=== PATIENT | female | born 1965 | race Two or more races ===

== ENCOUNTER 2020-01-23 13:43 | Inpatient (IN) | payer BC, OTHER ==
[~2020-01-23] VITALS: Ht 154.9 cm; Wt 68.0 kg
[2020-01-23] MEDS ORDERED: DOXYCYCLINE 100 MG TAB/CAP PO ONE (17:15)
[2020-01-23] MEDS ORDERED: SODIUM CHLORIDE 0.9% 1,000 ML IV ONE (17:15)
[2020-01-23] MEDS ORDERED: methylPREDNISolone SOD SUCC 125 MG/2 ML VL IM ONE (17:15)
[2020-01-23] MEDS ORDERED: cefTRIAXone SOD 1,000 MG VL IM ONE (17:15)
[2020-01-23] MEDS ORDERED: methylPREDNISolone SOD SUCC 125 MG/2 ML VL IV ONE (18:15)
[2020-01-23] MEDS ORDERED: cefTRIAXone 1GM/50ML D5W 50 ML IV ONE (18:15)
[2020-01-23 19:00] LABS: Basophils # (auto) 0 10 ^3/uL (0-0.2); Basophils % (auto) 0.1 % (0.0-2.0); Eosinophils # (auto) 0 10 ^3/uL (0-0.8); Hematocrit 37.1 % (36.0-46.0); Hemoglobin 12.8 g/dL (12.2-16.2); Lymphocytes % (auto) 11.5 % (10.0-50.0); Mean Corpuscular Hgb Conc. 34.6 g/dL (32.0-36.0); Mean Corpuscular Volume 89.6 fL (80.0-100.0); Monocytes # (auto) 0.6 10 ^3/uL (0-1.3); Neutrophils % (auto) 81.4 % (37.0-80.0); Platelet Count (auto) 248 10^3/uL (140-450); Red Blood Cells 4.14 10^6/uL (4.0-5.20); Red Cell Distribution Width 12.6 % (11.8-14.3); White Blood Cell 8.6 10^3/uL (4.4-10.8)
[2020-01-23 19:14] LABS: INR 1.06 (0.9-1.15); Partial Thromboplastin Time 25.5 sec (23.0-31.2)
[2020-01-23 19:21] LABS: Anion Gap 6 (5-15); Blood Urea Nitrogen 9 mg/dL (7-18); Calcium 8.3 mg/dL (8.5-10.1); Carbon Dioxide 25 mmol/L (21-32); Chloride 107 mmol/L (98-107); Glucose 145 mg/dL (74-106); Potassium 3.5 mmol/L (3.5-5.1); Sodium 138 mmol/L (136-145)
[2020-01-23 19:27] LABS: Alanine Aminotransferase 20 U/L (13-56); Alkaline Phosphatase 45 U/L (45-117); Aspartate Aminotransferase 26 U/L (15-37); BUN/Creatinine Ratio 11.7; Bilirubin, Total 0.6 mg/dL (0.2-1.0); GFR African American 100 mL/min; GFR Non-African American 82 mL/min; Total Protein 7.1 g/dL (6.4-8.2)
[2020-01-23] MEDS ORDERED: ACETAMINOPHEN 325 MG TAB PO ONE (21:00)
[2020-01-24] MEDS ORDERED: ACETAMINOPHEN 325 MG TAB PO PRN (04:45)
[2020-01-24] MEDS ORDERED: DOCUSATE SOD 100 MG CAP PO PRN (04:45)
[2020-01-24] MEDS ORDERED: MORPHINE SULF INJ 2 MG/ML SYRINGE 1ML IV PRN (04:45)
[2020-01-24] MEDS ORDERED: ONDANSETRON HCL 4 MG/2 ML VIAL IV PRN (04:45)
[2020-01-24] MEDS ORDERED: NITROGLYCERIN 0.4 MG SL TAB SL PRN (04:45)
[2020-01-24 05:25] LABS: Basophils # (auto) 0 10 ^3/uL (0-0.2); Basophils % (auto) 0.1 % (0.0-2.0); Eosinophils # (auto) 0 10 ^3/uL (0-0.8); Hematocrit 36.6 % (36.0-46.0); Hemoglobin 12.7 g/dL (12.2-16.2); Lymphocytes # (auto) 0.8 10 ^3/uL (0.4-5.4); Lymphocytes % (auto) 8.8 % (10.0-50.0); Mean Corpuscular Hgb Conc. 34.6 g/dL (32.0-36.0); Mean Corpuscular Volume 89.6 fL (80.0-100.0); Monocytes # (auto) 0.2 10 ^3/uL (0-1.3); Monocytes % (auto) 2.6 % (0.0-12.0); Neutrophils # (auto) 7.6 10 ^3/uL (1.6-8.6); Neutrophils % (auto) 88.5 % (37.0-80.0); Platelet Count (auto) 246 10^3/uL (140-450); Red Blood Cells 4.09 10^6/uL (4.0-5.20); Red Cell Distribution Width 12.7 % (11.8-14.3); White Blood Cell 8.6 10^3/uL (4.4-10.8)
[2020-01-24 05:43] LABS: Albumin 2.9 g/dL (3.4-5.0); Calcium 8.6 mg/dL (8.5-10.1); Potassium 3.4 mmol/L (3.5-5.1)
[2020-01-24 05:46] LABS: BUN/Creatinine Ratio 15.9; Bilirubin, Total 0.4 mg/dL (0.2-1.0)
[2020-01-24] MEDS: SODIUM CHLOR 0.9% PF (SALINE LOCK) 10ML VIAL/SYR IV SCH ×3 (05:47→21:10)
[2020-01-24] MEDS: ENOXAPARIN SOD 40 MG/0.4 ML SYRINGE SC SCH (10:00)
[2020-01-24] MEDS: MULTIPLE VITAMIN TAB PO SCH (10:00)
[2020-01-24] MEDS: ASCORBIC ACID 500 MG TAB PO SCH ×2 (10:00→21:10)
[2020-01-24] MEDS: PANTOPRAZOLE 40 MG/10 ML VIAL INJ IV SCH (10:00)
[2020-01-24] MEDS: ZINC SULFATE 220mg CAP or TAB PO SCH (10:00)
[2020-01-24] MEDS: AZITHROMYCIN 500MG/ 250ML 250 ML IV SCH (12:34)
[2020-01-24] MEDS: DexAMETHasone SOD PHOS 10MG/1ML VIAL INJ IV SCH (12:34)
[2020-01-24] MEDS: HYDROcodone-ACET 5/325MG TAB PO PRN (15:58)
[2020-01-24] MEDS ORDERED: ALBUTEROL SULF 2.5 MG/0.5ML(0.5%) NEB SOLN NEB PRN (17:45)
[2020-01-24] MEDS: CHOLECALCIFEROL (VITD3) 2,000 UNIT CAP PO SCH (18:10)
[2020-01-24] MEDS: cefTRIAXone 1GM/50ML D5W 50 ML IV SCH (18:10)
[2020-01-24 20:52] LABS: Urine Bacteria NONE SEEN /hpf (None Seen); Urine Blood Negative /uL (Negative); Urine Specific Gravity 1.013 (1.001-1.035); Urine WBC <1 /hpf (0 - 5)
[2020-01-25] MEDS: SODIUM CHLOR 0.9% PF (SALINE LOCK) 10ML VIAL/SYR IV SCH ×3 (05:58→21:34)
[2020-01-25] MEDS: HYDROcodone-ACET 5/325MG TAB PO PRN (07:43)
[2020-01-25 08:03] LABS: Basophils # (auto) 0 10 ^3/uL (0-0.2); Basophils % (auto) 0.1 % (0.0-2.0); Eosinophils # (auto) 0 10 ^3/uL (0-0.8); Hematocrit 39.2 % (36.0-46.0); Hemoglobin 13.4 g/dL (12.2-16.2); Lymphocytes # (auto) 1.3 10 ^3/uL (0.4-5.4); Lymphocytes % (auto) 12.8 % (10.0-50.0); Mean Corpuscular Hemoglobin 31.1 pg (28.0-32.0); Mean Corpuscular Hgb Conc. 34.2 g/dL (32.0-36.0); Mean Corpuscular Volume 90.9 fL (80.0-100.0); Monocytes # (auto) 0.7 10 ^3/uL (0-1.3); Monocytes % (auto) 6.7 % (0.0-12.0); Neutrophils % (auto) 80.4 % (37.0-80.0); Platelet Count (auto) 296 10^3/uL (140-450); Red Blood Cells 4.31 10^6/uL (4.0-5.20); Red Cell Distribution Width 13.1 % (11.8-14.3); White Blood Cell 9.9 10^3/uL (4.4-10.8)
[2020-01-25 08:21] LABS: Albumin 2.8 g/dL (3.4-5.0); Calcium 8.8 mg/dL (8.5-10.1); Potassium 3.3 mmol/L (3.5-5.1)
[2020-01-25 08:25] LABS: BUN/Creatinine Ratio 16.9; Bilirubin, Total 0.5 mg/dL (0.2-1.0); Total Protein 6.8 g/dL (6.4-8.2)
[2020-01-25] MEDS: cefTRIAXone 1GM/50ML D5W 50 ML IV SCH (09:29)
[2020-01-25] MEDS: ENOXAPARIN SOD 40 MG/0.4 ML SYRINGE SC SCH (10:00)
[2020-01-25] MEDS: MULTIPLE VITAMIN TAB PO SCH (10:00)
[2020-01-25] MEDS: ASCORBIC ACID 500 MG TAB PO SCH ×2 (10:00→21:34)
[2020-01-25] MEDS: ZINC SULFATE 220mg CAP or TAB PO SCH (10:00)
[2020-01-25] MEDS: PANTOPRAZOLE 40 MG/10 ML VIAL INJ IV SCH (10:00)
[2020-01-25] MEDS: DexAMETHasone SOD PHOS 10MG/1ML VIAL INJ IV SCH (10:00)
[2020-01-25] MEDS: CHOLECALCIFEROL (VITD3) 2,000 UNIT CAP PO SCH (10:00)
[2020-01-25] MEDS: AZITHROMYCIN 500MG/ 250ML 250 ML IV SCH (10:00)
[2020-01-25] MEDS ORDERED: REMDESIVIR PER PHARMACY 0 ML IV SCH (19:30)
[2020-01-25] MEDS ORDERED: REMDESIVIR 200 MG in NS 210ml LOADING DOSE ADULT IV ONE (21:00)
--- NOTE | 2020-01-26 02:30 | NUR ---
Telemetry admit from ER MADHUCAMRON admitted to Telemetry unit after SBAR received. Patient oriented to JOAO AGUILAR RN primary RN, unit, room, bed, and unit policies regarding patient care and visiting hours. Patient now on continuous telemetry monitoring, tele box # [id number] and telemetry reading on arrival to unit is Sinus Aj at 51BPM. Patient placed on bedside oxygen, weighed by bedscale and encouraged to call if they need something. All questions and concerns addressed, patient verbalized understanding.
[2020-01-26] MEDS: HYDROcodone-ACET 5/325MG TAB PO PRN ×2 (02:49→22:00)
[2020-01-26 03:46] VITALS: BP 119/66
[2020-01-26 04:00] VITALS: BP 119/66
[2020-01-26] MEDS ORDERED: LEVO88TA4 PO (04:32)
[2020-01-26] MEDS: SODIUM CHLOR 0.9% PF (SALINE LOCK) 10ML VIAL/SYR IV SCH ×2 (05:32→17:06)
--- NOTE | 2020-01-26 06:47 | NUR ---
Patient is resting in bed with eyes closed, resting, no distress noted and patient denies pain.
[2020-01-26 08:00] VITALS: BP 104/63
[2020-01-26] MEDS: cefTRIAXone 1GM/50ML D5W 50 ML IV SCH (09:00)
[2020-01-26 09:47] LABS: Basophils # (auto) 0 10 ^3/uL (0-0.2); Basophils % (auto) 0.1 % (0.0-2.0); Eosinophils # (auto) 0 10 ^3/uL (0-0.8); Eosinophils % (auto) 0.2 % (0.0-7.0); Hematocrit 37.9 % (36.0-46.0); Hemoglobin 12.8 g/dL (12.2-16.2); Lymphocytes # (auto) 1.5 10 ^3/uL (0.4-5.4); Lymphocytes % (auto) 23.8 % (10.0-50.0); Mean Corpuscular Hemoglobin 30.4 pg (28.0-32.0); Mean Corpuscular Hgb Conc. 33.8 g/dL (32.0-36.0); Monocytes # (auto) 0.5 10 ^3/uL (0-1.3); Neutrophils # (auto) 4.3 10 ^3/uL (1.6-8.6); Neutrophils % (auto) 67.9 % (37.0-80.0); Nucleated Red Blood Cells % 0.1 %; Platelet Count (auto) 329 10^3/uL (140-450); Red Blood Cells 4.22 10^6/uL (4.0-5.20); Red Cell Distribution Width 12.8 % (11.8-14.3); White Blood Cell 6.3 10^3/uL (4.4-10.8)
[2020-01-26 10:00] LABS: Potassium 3.5 mmol/L (3.5-5.1)
[2020-01-26] MEDS: PANTOPRAZOLE 40 MG/10 ML VIAL INJ IV SCH (10:00)
[2020-01-26 10:03] LABS: BUN/Creatinine Ratio 22.2; Calcium 8.7 mg/dL (8.5-10.1)
[2020-01-26] MEDS: MULTIPLE VITAMIN TAB PO SCH (10:40)
[2020-01-26] MEDS: ZINC SULFATE 220mg CAP or TAB PO SCH (10:41)
[2020-01-26] MEDS: DexAMETHasone SOD PHOS 10MG/1ML VIAL INJ IV SCH (10:41)
[2020-01-26] MEDS: CHOLECALCIFEROL (VITD3) 2,000 UNIT CAP PO SCH (10:41)
[2020-01-26] MEDS: ENOXAPARIN SOD 40 MG/0.4 ML SYRINGE SC SCH (10:41)
[2020-01-26] MEDS: ASCORBIC ACID 500 MG TAB PO SCH ×2 (10:42→21:59)
[2020-01-26] MEDS: AZITHROMYCIN 500MG/ 250ML 250 ML IV SCH (12:10)
[2020-01-26 12:11] VITALS: BP 116/68
[2020-01-26 16:00] VITALS: BP 97/61
[2020-01-26] MEDS ORDERED: FUROSEMIDE 20 MG TAB PO ONE (16:45)
[2020-01-26] MEDS ORDERED: POTASSIUM CHL 20 Meq TABLET PO ONE (16:45)
[2020-01-26] MEDS: REMDESIVIR 100 MG in SODIUM CHL 0.9% 250 ML IV SCH (17:05)
--- NOTE | 2020-01-26 17:08 | NUR ---
I received a call from Dr. Willis regarding home health and home oxygen order for this patient. I made him aware that due to the late hour, it most likely would have to be completed tomorrow. I faxed home health order to [facility]. I faxed home oxygen order to [facility]. I faxed home health and home oxygen order to [facility].
--- NOTE | 2020-01-26 19:25 | NUR ---
Opening Shift Note Received report from erendira Coburn RN. Assumed care of patient, awake and alert. No S/S of distress/SOB or pain. On 3LNC saturating at 90%. Instructed on POC and to call for assist PRN, will continue to monitor for changes Q1hr and PRN. Bed placed in lowest position and call light within reach.
--- NOTE | 2020-01-26 19:42 | NUR ---
Patient was able to ambulated to the bathroom with slow pace. Remdesivir first dose given at 1710, BP after 15 minutes: 96/59, HR 63, o2 94% on 3L NC, temp 98.1F. finished remdesivir at 1820, BP 106/61, HR 78, RR 18, 90% on 3L o2. no adverse reaction. Received a call in the late afternoon from MD to call pulmologist Dr. Bueno for clearance for discharge, but it was too late to call and not able to reach Dr. Bueno. report given to [employer] food shift lead RN.
--- NOTE | 2020-01-26 19:56 | NUR ---
Given hot lorne tea per patient request.
[2020-01-26 22:00] VITALS: BP 106/61
[2020-01-27] MEDS: SODIUM CHLOR 0.9% PF (SALINE LOCK) 10ML VIAL/SYR IV SCH ×3 (02:23→14:28)
[2020-01-27 05:00] VITALS: BP 102/58
--- NOTE | 2020-01-27 05:18 | NUR ---
Influenza A&B swab sent to lab.
[2020-01-27 06:06] LABS: Mean Corpuscular Hemoglobin 31.3 pg (28.0-32.0); Mean Corpuscular Hgb Conc. 35.2 g/dL (32.0-36.0); Mean Corpuscular Volume 89.2 fL (80.0-100.0); Platelet Count (auto) 333 10^3/uL (140-450); Red Blood Cells 4.15 10^6/uL (4.0-5.20); Red Cell Distribution Width 12.7 % (11.8-14.3); White Blood Cell 5.5 10^3/uL (4.4-10.8)
[2020-01-27 06:22] LABS: Basophils % (manual) 0 (0.0-2.0); Blast Cells 0; Promyelocytes % 0
[2020-01-27 06:29] LABS: BUN/Creatinine Ratio 22.4; Calcium 8.2 mg/dL (8.5-10.1); Potassium 3.9 mmol/L (3.5-5.1)
--- NOTE | 2020-01-27 07:00 | NUR ---
Patient is positive for Influenza A and B. Dr Alejandra Willis contacted and left a message.
[2020-01-27 07:05] LABS: Band Neutrophils % (manual) 1; Lymphocytes % (manual) 30 (10.0-50.0); Metamyelocytes % 1; Monocytes % (manual) 8 (0-12); Myelocytes % 1
--- NOTE | 2020-01-27 07:20 | NUR ---
OPENING NOTE ASSUMED CARE OF PT. ALERT AND ORIENTED. NO S/S OF SOB/DISTRESS NOTED. BED SET TO LOWEST POSITION/LOCKED, BEDSIDE RAILS UP X2, CALL LIGHT WITHIN REACH. INSTRUCTED PT TO CALL FOR ASSISTANCE. UPDATED PT ON POC. PT VERBALIZED UNDERSTANDING. WILL CONTINUE TO MONITOR Q1HR AND PRN.
--- NOTE | 2020-01-27 07:50 | NUR ---
OPENING NOTE ASSUMED CARE OF PT. ALERT AND ORIENTED. NO S/S OF SOB/DISTRESS NOTED. BED SET TO LOWEST POSITION/LOCKED, BEDSIDE RAILS UP X2, CALL LIGHT WITHIN REACH. INSTRUCTED PT TO CALL FOR ASSISTANCE. UPDATED PT ON POC. PT VERBALIZED UNDERSTANDING. WILL CONTINUE TO MONITOR Q1HR AND PRN. Addendum: 01/27/20 at 1552 by Alexus England RN WRONG PATIENT
[2020-01-27 08:13] VITALS: BP 90/56
[2020-01-27] MEDS: cefTRIAXone 1GM/50ML D5W 50 ML IV SCH (10:25)
[2020-01-27] MEDS: PANTOPRAZOLE 40 MG/10 ML VIAL INJ IV SCH (10:26)
[2020-01-27] MEDS: DexAMETHasone SOD PHOS 10MG/1ML VIAL INJ IV SCH (10:26)
[2020-01-27] MEDS: AZITHROMYCIN 500MG/ 250ML 250 ML IV SCH (10:26)
[2020-01-27] MEDS: ASCORBIC ACID 500 MG TAB PO SCH ×2 (10:27→21:31)
[2020-01-27] MEDS: MULTIPLE VITAMIN TAB PO SCH (10:27)
[2020-01-27] MEDS: CHOLECALCIFEROL (VITD3) 2,000 UNIT CAP PO SCH (10:27)
[2020-01-27] MEDS: ZINC SULFATE 220mg CAP or TAB PO SCH (10:27)
[2020-01-27] MEDS: ENOXAPARIN SOD 40 MG/0.4 ML SYRINGE SC SCH (10:28)
--- NOTE | 2020-01-27 11:33 | NUR ---
HOME O2 PATIENTS HOME O2 DELIVERED TO DAY 01/27/2020 AND IS AT BEDSIDE.
--- NOTE | 2020-01-27 11:45 | NUR ---
Nutrition Assessment Note please see attached link for complete assessment Est energy needs BW 69 [id number] kcal (23-25 kcal/kg BW) Est protein needs: 69-75 g (1-1.1g/kg BW) Will monitor and reassess prn. Addendum: 01/27/20 at [address] Amended: Links added.
[2020-01-27 12:16] LABS: Eosinophils % (manual) 0 (0-7)
[2020-01-27 12:17] LABS: Reactive Lymphocytes 0
[2020-01-27 12:30] VITALS: BP 102/61
[2020-01-27] MEDS ORDERED: ALBUTEROL SULF 2.5 MG/0.5ML(0.5%) NEB SOLN NEB SCH (14:45)
[2020-01-27] MEDS ORDERED: OSELTAMIVIR 75 MG CAP PO SCH (14:45)
[2020-01-27] MEDS: REMDESIVIR 100 MG in SODIUM CHL 0.9% 250 ML IV SCH (15:00)
--- NOTE | 2020-01-27 15:00 | NUR ---
REMDESIVIR MEDICATION MEDICATION HELD, PATIENT BP: 87/57. WILL PAGE . WILL CONTINUE TO MONITOR.
--- NOTE | 2020-01-27 15:16 | NUR ---
PAGED Mariam FLANAGAN. RE: BLOOD PRESSURE 87/57 [facility] AND [facility] ADMINISTRATION. AWAITING CALL BACK.
--- NOTE | 2020-01-27 15:30 | NUR ---
REASSESSED BP PATIENT BP: 90/59. WILL CONTINUE TO MONITOR.
[2020-01-27] MEDS: LEVOTHYROXINE SODIUM 88 MCG TAB PO SCH (15:58)
[2020-01-27] MEDS: OSELTAMIVIR 75 MG CAP PO SCH (16:06)
--- NOTE | 2020-01-27 16:36 | NUR ---
REASSESSED BP PATIENT BP 99/67 [facility]. WILL CONTINUE TO MONITOR.
[2020-01-27 17:00] VITALS: BP 115/68
--- NOTE | 2020-01-27 19:30 | NUR ---
Opening Shift Note Received report from day RN. Assumed care of patient, awake and alert. No S/S of distress/SOB or pain. On 4LNC saturating at 95%. Instructed on POC and to call for assist PRN, will continue to monitor for changes Q1hr and PRN. Bed placed in lowest position and call light within reach.
--- NOTE | 2020-01-27 21:20 | NUR ---
Respiratory note: PT CURRENTLY ON NC4L. PT AWAKE AND ALERT. NO RESP DISTRESS NOTED. PRN TX NOT INDICATED. SPO2 94%, HR 101, RR 20. BS CLEAR/DIMINISHED. PT AWARE TO CALL FOR TX IF SOB.
[2020-01-27 22:00] VITALS: BP 95/59
[2020-01-27] MEDS ORDERED: ALBUTEROL SULF HFA 90MCG INH 200DOSE IN SCH (22:00)
[2020-01-27] MEDS ORDERED: ALBUTEROL SULF HFA 90MCG INH 200DOSE IN PRN (22:00)
[2020-01-28 05:00] VITALS: BP 97/58
[2020-01-28 05:54] LABS: Hematocrit 37.2 % (36.0-46.0); Mean Corpuscular Hemoglobin 31.2 pg (28.0-32.0); Mean Corpuscular Hgb Conc. 34.9 g/dL (32.0-36.0); Mean Corpuscular Volume 89.2 fL (80.0-100.0); Platelet Count (auto) 383 10^3/uL (140-450); Red Blood Cells 4.17 10^6/uL (4.0-5.20); Red Cell Distribution Width 12.6 % (11.8-14.3); White Blood Cell 6.3 10^3/uL (4.4-10.8)
[2020-01-28 06:19] LABS: Potassium 3.6 mmol/L (3.5-5.1)
[2020-01-28] MEDS: SODIUM CHLOR 0.9% PF (SALINE LOCK) 10ML VIAL/SYR IV SCH ×3 (06:32→17:58)
[2020-01-28 06:44] LABS: Albumin 2.6 g/dL (3.4-5.0); Bilirubin, Total 0.4 mg/dL (0.2-1.0); Calcium 8.5 mg/dL (8.5-10.1); Total Protein 6.3 g/dL (6.4-8.2)
--- NOTE | 2020-01-28 07:00 | NUR ---
Patient is resting in bed alert and awake. No distress noted, saturating at 96% on 4LNC. Patient denies pain
[2020-01-28 07:06] LABS: Basophils % (manual) 0 (0.0-2.0); Blast Cells 0; Eosinophils % (manual) 0 (0-7); Promyelocytes % 0; Reactive Lymphocytes 0
[2020-01-28] MEDS: LEVOTHYROXINE SODIUM 88 MCG TAB PO SCH (07:12)
--- NOTE | 2020-01-28 07:18 | NUR ---
Respiratory note: PT SEEN AT THIS , AWAKE AND ALERT NO RESP DISTRESS NOTED. HR 68, RR 18, SPO2 95% ON 4L NC.
[2020-01-28 07:30] LABS: INR 1.11 (0.9-1.15); Partial Thromboplastin Time 24.5 sec (23.0-31.2)
[2020-01-28 08:00] VITALS: BP 99/61
--- NOTE | 2020-01-28 08:00 | NUR ---
Opening Shift Note Assumed care of patient, pt is awake and A&OX4. No S/S of distress/SOB or pain. Instructed on POC and to call for assist PRN, call light within reach, bed is locked, in lowest position with side rails upX2. Will continue to monitor for changes Q1hr and PRN.
--- NOTE | 2020-01-28 08:27 | NUR ---
Discharge Discharge instructions given as ordered. Encourage to follow up with PMD as instructed. All questions and concerns addressed. Patient verbalized understanding. Medication reconciliation form completed and copy given to patient. IV removed with catheter intact, pressure dressing applied. Telemetry unit returned to ICU. Pt was discharged with her portable O2X2. Instructions on O2 use and incentive spirometry given, pt verbalized understanding. Instructions on home isolation given and pt verbalized understanding. Patient taken to vehicle via wheelchair with all personal belongings, accompanied by staff. No distress noted at time of departure.
[2020-01-28 08:43] LABS: Band Neutrophils % (manual) 2; Lymphocytes % (manual) 21 (10.0-50.0); Metamyelocytes % 2; Monocytes % (manual) 12 (0-12); Myelocytes % 3
[2020-01-28 09:11] VITALS: BP 99/61
[2020-01-28] MEDS: ENOXAPARIN SOD 40 MG/0.4 ML SYRINGE SC SCH (09:12)
[2020-01-28] MEDS: CHOLECALCIFEROL (VITD3) 2,000 UNIT CAP PO SCH (09:13)
[2020-01-28] MEDS: DexAMETHasone SOD PHOS 10MG/1ML VIAL INJ IV SCH (09:13)
[2020-01-28] MEDS: OSELTAMIVIR 75 MG CAP PO SCH (09:13)
[2020-01-28] MEDS: cefTRIAXone 1GM/50ML D5W 50 ML IV SCH (09:14)
[2020-01-28] MEDS: ZINC SULFATE 220mg CAP or TAB PO SCH (09:14)
[2020-01-28] MEDS: ASCORBIC ACID 500 MG TAB PO SCH (09:14)
[2020-01-28] MEDS: MULTIPLE VITAMIN TAB PO SCH (09:14)
[2020-01-28] MEDS: AZITHROMYCIN 500MG/ 250ML 250 ML IV SCH (09:16)
[2020-01-28] MEDS ORDERED: PANTOPRAZOLE 40 MG TAB PO SCH (10:00)
[2020-01-28] MEDS ORDERED: SODIUM CHLORIDE 0.9% 1,000 ML IV SCH (11:00)
--- NOTE | 2020-01-28 12:05 | NUR ---
MD Gannon at Bedside Dr. Gannon at bedside and discussed plan of care with the patient.
[2020-01-28 12:39] VITALS: BP 89/45
--- NOTE | 2020-01-28 13:25 | NUR ---
Spoke to MD. Willis Spoke to Dr. Willis regarding the pt's decreased BP and obtained a new order. Will follow the order and continue to monitor the pt Q1H.
[2020-01-28] MEDS ORDERED: SODIUM CHLORIDE 0.9% 1,000 ML IV ONE (13:30)
[2020-01-28] MEDS: REMDESIVIR 100 MG in SODIUM CHL 0.9% 250 ML IV SCH (15:00)
[2020-01-28] MEDS ORDERED: DEX4T PO (16:30)
[2020-01-28] MEDS ORDERED: ALBUAER3 IN (16:30)
[2020-01-28] MEDS ORDERED: TAMIFLU PO (16:30)
[2020-01-28] MEDS ORDERED: CHOL1CAP47 PO (16:30)
[2020-01-28] MEDS ORDERED: ASCO500T11 PO (16:30)
[2020-01-28] MEDS ORDERED: ZINCCAP PO (16:30)
[2020-01-28 16:33] VITALS: BP 95/59
[2020-01-28 17:17] VITALS: BP 106/61
[2020-01-29] MEDS ORDERED: AZITHROMYCIN 250 MG TAB PO SCH (10:00)
== END 2020-01-28 18:27 | disposition home health service (06) | DRG 177 ==
LOC: EDBD 13:43 → ER 13:43 → OVERFLOW 13:44 → TELE-WESTW 01-26 02:21
PROVIDERS: ADMIT Nurse Practitioner Family; ATTEND Internal Medicine
PROC: XW033E5 Introduction of Remdesivir Anti-infective into Peripheral Vein, Percutaneous Approach, New Technology Group 5 (ICD-10-PCS; principal; 2020-01-25)
DX: U07.1 COVID-19 (principal); J12.89 Other viral pneumonia; J10.08 Influenza due to other identified influenza virus with other specified pneumonia; J96.01 Acute respiratory failure with hypoxia; J98.11 Atelectasis; J81.1 Chronic pulmonary edema; I95.9 Hypotension, unspecified; E03.9 Hypothyroidism, unspecified; R73.9 Hyperglycemia, unspecified; E66.01 Morbid (severe) obesity due to excess calories; Z68.28 Body mass index [BMI] 28.0-28.9, adult
CPT/HCPCS: 36415; 36600; 71045; 71250; 80048; 80053; 81001; 82728; 82805; 83036; 83735; 83880; 84436; 84439; 84443; 84484; 85007; 85025; 85027; 85379; 85610; 85730; 86141; 87426; 87804; 93005; C9113; G0378; J0696; J1100; J2405